=== PATIENT | male | born 1965 | race Caucasian/White ===

== ENCOUNTER 2016-11-26 01:16 | Emergency (ER) | payer SELFPAY ==
[2016-11-26 01:29] VITALS: BP 143/90
--- NOTE | 2016-11-26 02:01 | EDM.PDOC ---
ED HPI GENERAL MEDICAL PROBLEM - General Chief Complaint: Flank Pain Stated Complaint: POSS KIDNEY STONE Time Seen by Provider: 11/26/16 02:01 - History of Present Illness INITIAL COMMENTS - FREE TEXT/NARRATIVE: 51-year-old male presents emergency room with left flank pain. This started around 6:00 this evening comes and goes the pain has not been too severe. It reminds him of his last kidney stone. The patient has a history of passing one kidney stone in the past this required lithotripsy. Patient is not having any nausea no vomiting no diarrhea no constipation he denies any fevers or chills no burning or frequency with urination. Treatments ORTHOTIC PRACTITIONER: Reports: Other medication(s) Other Treatments ORTHOTIC PRACTITIONER: 2 percocet Left Flank Pain Score (Numeric/FACES): 8 - Related Data Allergies Allergy/AdvReac Type Severity Reaction Status Date / Time No Known Allergies Allergy Verified 11/26/16 01:29 Home Meds: Home Meds Tamsulosin [Flomax] 0.4 mg PO Q24H #10 cap.er 11/26/16 [Rx] Past Medical History Genitourinary History: Reports: Renal calculus - Past Surgical History GI Surgical History: Reports: Cholecystectomy Male Surgical History: Reports: None Social & Family History - Tobacco Use Smoking Status *Q: Current Every Day Smoker Years of Tobacco use: 20 Packs/Tins Daily: 0.5 Used Tobacco, but Quit: No Second Hand Smoke Exposure: No - Caffeine Use Caffeine Use: Reports: Coffee, Soda - Recreational Drug Use Recreational Drug Use: Yes Drug Use in Last 12 Months: Yes Recreational Drug Type: Reports: Marijuana/Hashish Other Recreational Drug Type: Pateint states he smokes marijuana BID Recreational Drug Use Frequency: Daily Recreational Drug Last Use: 11/25/16 ED ROS GENERAL - Review of Systems Review Of Systems: See Below Constitutional: Reports: no symptoms. Denies: fever, chills HEENT: Reports: No symptoms Respiratory: Reports: No Symptoms Cardiovascular: Reports: No symptoms GI/Abdominal: Reports: Abdominal pain, Other. Denies: Constipation, Diarrhea, Nausea, Vomiting : Reports: flank pain. Denies: discharge, dysuria, frequency, hematuria, urgency, urinary retention Neurological: Reports: No Symptoms ED EXAM, GI/ABD - Physical Exam Exam: See Below Exam Limited By: No limitations General Appearance: alert, no apparent distress Head: atraumatic, normocephalic Neck: normal inspection, supple, non-tender, full range of motion Respiratory/Chest: no respiratory distress, lungs clear, normal breath sounds Cardiovascular: regular rate, rhythm, no edema, no murmur GI/Abdominal: Normal Bowel Sounds, Soft, Other (Patient has some vague left- sided discomfort not worsened with palpation the pain is mostly left upper quadrant it radiates a little bit down into the left lower quadrant does not go into his groin) Back Exam: normal inspection, CVA tenderness (L), other (She has some left CVA discomfort not worsened with palpation or percussion). No: CVA tenderness (R) Course - Vital Signs Last Recorded V/S: Last Vital Signs Temp 37.1 C 11/26/16 01:26 Pulse 57 L 11/26/16 01:26 Resp 19 11/26/16 01:26 BP 143/90 H 11/26/16 01:26 Pulse Ox 96 11/26/16 01:26 - Orders/Labs/Meds Orders: Active Orders 24 hr Category Date Time Status Abdomen Pelvis wo Cont [CT] Stat Exams 11/26/16 02:32 Taken Lactated Ringers [Ringers, Lactated] 1,000 ml Med 11/26/16 02:15 Active IV ASDIRECTED Medication Orders Lactated Ringer's (Ringers, Lactated) 1,000 mls @ 150 mls/hr IV ASDIRECTED MATILDE Last Admin: 11/26/16 02:23 Dose: 150 mls/hr Labs: Laboratory Tests 11/26/16 11/26/16 11/26/16 Range/Units 02:25 02:25 03:42 WBC 14.68 H (4.23-9.07) K/mm3 RBC 4.69 (4.63-6.08) M/mm3 Hgb 15.8 (13.7-17.5) gm/L Hct 44.3 (40.1-51.0) % MCV 94.5 H (79.0-92.2) fl MCH 33.7 H (25.7-32.2) pg MCHC 35.7 H (32.2-35.5) g/dl RDW Std Deviation 43.5 (35.1-43.9) fL Plt Count 208 (163-337) K/mm3 MPV 10.8 (9.4-12.3) fl Neutrophils % (Manual) 83 H (40-60) % Band Neutrophils % 0 (0-10) % Lymphocytes % (Manual) 10 L (20-40) % Atypical Lymphs % 0 % Monocytes % (Manual) 7 (2-10) % Eosinophils % (Manual) 0 L (0.8-7.0) % Basophils % (Manual) 0 L (0.2-1.2) Platelet Estimate Adequate RBC Morph Comment Normal Sodium 137 (136-145) mEq/L Potassium 3.9 (3.5-5.1) mEq/L Chloride 103 (98-107) mEq/L Carbon Dioxide 23 (21-32) mEq/L Anion Gap 14.9 (5-15) BUN 21 H (7-18) mg/dL Creatinine 1.4 H (0.7-1.3) mg/dL Est Cr Clr Drug Dosing 59.04 mL/min Estimated GFR (MDRD) 53 (>60) mL/min BUN/Creatinine Ratio 15.0 (14-18) Glucose 118 H (74-106) mg/dL Calcium 9.2 (8.5-10.1) mg/dL Total Bilirubin 1.0 (0.2-1.0) mg/dL AST 36 (15-37) U/L ALT 57 (16-63) U/L Alkaline Phosphatase 67 (46-116) U/L Total Protein 7.9 (6.4-8.2) g/dl Albumin 3.9 (3.4-5.0) g/dl Globulin 4.0 gm/dL Albumin/Globulin Ratio 1.0 (1-2) Urine Color Yellow (Yellow) Urine Appearance Clear (Clear) Urine pH 5.5 (5.0-8.0) Ur Specific [place] 1.025 (1.005-1.030) Urine Protein 1+ H (Negative) Urine Glucose (UA) Negative (Negative) Urine Ketones Negative (Negative) Urine Occult Blood 2+ H (Negative) Urine Nitrite Negative (Negative) Urine Bilirubin Negative (Negative) Urine Urobilinogen 0.2 (0.2-1.0) Ur Leukocyte Esterase Negative (Negative) Urine RBC 10-20 H (0-5) /hpf Urine WBC 0-5 (0-5) /hpf Ur Epithelial Cells 0-5 (0-5) /hpf Ur Squamous Epith Cells 0-5 (0-5) /hpf Urine Bacteria Not seen (FEW) /hpf Urine Mucus Few (FEW) /hpf Meds: Medications Generic Name Dose Route Start Last Admin Trade Name Keke PRN Reason Stop Dose Admin Lactated Ringer's 1,000 mls @ 150 mls/hr 11/26/16 02:15 11/26/16 02:23 Ringers, Lactated IV 150 mls/hr ASDIRECTED MATILDE Administration Discontinued Medications Generic Name Dose Route Start Last Admin Trade Name Keke PRN Reason Stop Dose Admin Hydrocodone Bitart/Acetaminophen 1 tab 11/26/16 03:36 11/26/16 03:45 [place] 325-5 Mg PO 11/26/16 03:37 1 tab ONETIME ONE Administration Fentanyl 50 mcg 11/26/16 02:06 11/26/16 02:23 Sublimaze IVPUSH 11/26/16 02:07 50 mcg ONETIME ONE Administration Fentanyl 50 mcg 11/26/16 04:07 11/26/16 04:20 Sublimaze IVPUSH 11/26/16 04:08 50 mcg ONETIME STA Administration Ondansetron HCl 4 mg 11/26/16 02:06 11/26/16 02:23 Zofran IVPUSH 11/26/16 02:07 4 mg ONETIME ONE Administration Tamsulosin HCl 0.4 mg 11/26/16 03:37 11/26/16 03:45 Flomax PO 11/26/16 03:38 0.4 mg ONETIME ONE Administration - Re-Assessments/Exams Free Text/Narrative Re-Assessment/Exam: 11/26/16 03:56 We just obtained a urine awaiting the results of this patient has 8 mm kidney stone at the left UPJ with mild hydronephrosis labs show white count 14,680 he' s got a macrocytic process on his red cells White cell differential shows 83% segs no bands his creatinine is slightly elevated at 1.4. Departure - Departure Time of Disposition: 05:06 Disposition: Home, Self-Care 01 Clinical Impression: Kidney stone on left side - Discharge Information Prescriptions: Tamsulosin [Flomax] 0.4 mg PO Q24H #10 cap.er Referrals: PCP,Unknown [Primary Care Provider] - Forms: ED Department Discharge Additional Instructions: Return to emergency room if any questions or problems. Followup with your provider at the [facility] tomorrow for recheck. You be given a prescription for Flomax take one daily this may facilitate passage of the stone. Even given a prescription for hydrocodone take one or 2 tablets every 4-6 hours as needed for pain do not drive or returning to work within 12 hours of using this medication. You should be contacted by urology in [place]. [phone] - My Orders Last 24 Hours: My Active Orders 11/26/16 02:15 Lactated Ringers [Ringers, Lactated] 1,000 ml IV ASDIRECTED 11/26/16 02:32 Abdomen Pelvis wo Cont [CT] Stat - Assessment/Plan Last 24 Hours: My Active Orders 11/26/16 02:15 Lactated Ringers [Ringers, Lactated] 1,000 ml IV ASDIRECTED 11/26/16 02:32 Abdomen Pelvis wo Cont [CT] Stat
[2016-11-26] MEDS ORDERED: Ondansetron 4 MG/2 ML SDV IVPUSH ONE (02:06)
[2016-11-26] MEDS ORDERED: fentaNYL 100 MCG/2 ML SDV IVPUSH ONE (02:06)
[2016-11-26] MEDS ORDERED: Lactated Ringers 1,000 ML IV SCH (02:15)
[2016-11-26] MEDS ORDERED: Acetaminophen/HYDROcodone 325-5 MG Tab PO ONE (03:36)
[2016-11-26] MEDS ORDERED: Tamsulosin 0.4 MG Cap.ER PO ONE (03:37)
[2016-11-26] MEDS ORDERED: fentaNYL 100 MCG/2 ML SDV IVPUSH STA (04:07)
--- NOTE | 2016-11-26 09:04 | CT ---
CT abdomen and pelvis Technique: Multiple axial sections were obtained from above the dome of the diaphragm inferiorly through the pubic symphysis. Intravenous and oral contrast was not utilized. Study was performed as a ureteral stone protocol. Comparison: No previous exam. Findings: Inflammatory change noted around the left kidney. This finding is due to an obstructing stone located at the UPJ measuring approximately 9 mm. Nonobstructing stone seen more proximally within the renal pelvis measuring 1.1 cm. No other abnormal calcifications are seen along the course of the right or left ureters. No abnormal calcifications are seen within the right kidney. Visualized lung bases show nothing acute. Noncontrast appearance of the liver and spleen appear within normal limits. Adrenal glands show no nodule. Surgical clips seen from prior cholecystectomy. No discrete abnormality noted within the pelvis. Aorta shows no aneurysmal dilatation. No retroperitoneal adenopathy or mesenteric abnormalities are seen. No pelvic mass or adenopathy is seen. Appendix is seen which appears within normal limits. Slightly prominent small bowel seen within the left abdomen. This likely represents minimal ileus caused by the obstructing stone. Scattered degenerative change and scoliosis is noted within the spine. Impression: 1. Obstructing calculus within the left UPJ. Obstructing stone measures approximately 9 mm. 2. Nonobstructing stone more proximally within the renal pelvis measuring 1.1 cm. 3. Other incidental findings. Diagnostic code #3 I agree with preliminary report issued by [facility] (preliminary report dictated on 11/26/16, 4:32 AM Central Time)
== END 2016-11-26 06:05 | disposition home or self-care (01) ==
LOC: JD.ED 01:16
DX: N13.2 Hydronephrosis with renal and ureteral calculous obstruction (principal); F17.210 Nicotine dependence, cigarettes, uncomplicated; Z90.49 Acquired absence of other specified parts of digestive tract
CPT/HCPCS: 36415; 74176; 80053; 81001; 85025; 96361; 96374; 96375; 96376; 99284; A9270; J2405; J3010; J7120

== ENCOUNTER 2021-06-06 08:35 | Emergency (ER) | payer SELFPAY ==
[2021-06-06 08:48] VITALS: BP 159/104; PULSE 67
[2021-06-06] MEDS ORDERED: Ketorolac 15 MG/ML SDV IM ONE (09:00)
--- NOTE | 2021-06-06 09:04 | EDM.PDOC ---
ED HPI GENERAL MEDICAL PROBLEM - General Chief Complaint: Upper Extremity Injury/Pain Stated Complaint: R ELBOW PAIN Time Seen by Provider: 06/06/21 09:01 Source of Information: Reports: Patient - History of Present Illness INITIAL COMMENTS - FREE TEXT/NARRATIVE: Patient is a 55-year-old male who is left-hand dominant presenting with a chief complaint of right elbow pain. Pain is been present for 2 days. Patient reports no traumatic injuries prior to this. Patient reports pain is worse with movement. He does get relief with compressive bandages as well as warm compresses. Patient denies any fevers, recent illnesses, redness. He has also been using some aspirin with mild relief. Patient does report similar complaint several years ago for which he saw an business services specialist sales. They said this would likely be a recurrent issue and advised against surgery at that time. 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 Treatments CONSULTING SERVICES MANAGER: Reports: NSAIDS Right Elbow Pain Score (Numeric/FACES): 9 - Related Data Allergies Allergy/AdvReac Type Severity Reaction Status Date / Time No Known Allergies Allergy Verified 06/06/21 08:48 Home Meds: Home Meds Naproxen [Naprosyn] 375 mg PO BID #10 tab 06/06/21 [Rx] Pantoprazole 20 mg PO ACBREAKFAST 06/06/21 [History] atorvaSTATin [Lipitor] 10 mg PO DAILY 06/06/21 [History] Past Medical History - Past Health History Medical/Surgical History: Denies Medical/Surgical History HEENT History: Reports: Impaired Vision Cardiovascular History: Reports: High Cholesterol Genitourinary History: Reports: Renal Calculus - Past Surgical History GI Surgical History: Reports: Cholecystectomy Male Surgical History: Reports: None Social & Family History - Tobacco Use Tobacco Use Status *Q: Current Every Day Tobacco User Years of Tobacco use: 30 Packs/Tins Daily: 0.5 - Caffeine Use Caffeine Use: Reports: Coffee - Recreational Drug Use Recreational Drug Use: No Review of Systems - Review of Systems Review Of Systems: See Below Constitutional: Denies: Chills, Fever Respiratory: Denies: Shortness of Breath Cardiovascular: Denies: Chest Pain GI/Abdominal: Denies: Abdominal Pain Musculoskeletal: Reports: Arm Pain. Denies: Neck Pain, Shoulder Pain Neurological: Denies: Headache ED EXAM, GENERAL - Physical Exam Exam: See Below Free Text/Narrative:: I have reviewed the triage vital signs Const: Well nourished, well developed, appears stated age Eyes: Pupils Equal and reactive to light bilaterally, no conjunctival injection HENT: No signs of trauma or swelling, Neck supple without meningismus CV: Regular Rate Rhythm, Warm, well-perfused extremities RESP: Unlabored respiratory effort MSK: Limited range of motion of the right elbow secondary to pain. However, there is no evidence of redness, erythema, swelling, ecchymosis. No gross deformities appreciated Skin: Warm, dry. No rashes Neuro: Alert, vehicle dismantler II-XII grossly intact. Sensation and motor function of extremities grossly intact. Psych: Appropriate mood and affect. Course - Vital Signs Last Recorded V/S: Last Vital Signs Temp 36.3 C 06/06/21 08:40 Pulse 67 06/06/21 08:40 Resp 16 06/06/21 08:40 BP 159/104 H 06/06/21 08:40 Pulse Ox 93 L 06/06/21 08:40 - Orders/Labs/Meds Meds: Medications Discontinued Medications Generic Name Dose Route Start Last Admin Trade Name Keke PRN Reason Stop Dose Admin Ketorolac Tromethamine 30 mg 06/06/21 09:00 06/06/21 09:17 Ketorolac 15 Mg/Ml Sdv IM 06/06/21 09:01 30 mg ONETIME ONE Administration Departure - Departure Time of Disposition: 10:07 Disposition: Home, Self-Care 01 Clinical Impression: Right elbow pain - Discharge Information Prescriptions: Naproxen [Naprosyn] 375 mg PO BID #10 tab Instructions: Joint Pain, [id number] Referrals: Marcia Umaña [Primary Care Provider] - Forms: ED Department Discharge Additional Instructions: Please use compression to the area throughout the day. Take medications as directed. Follow-up with your orthopedic surgeon as soon as possible. You may continue to use heating pads as they seem to help. Sepsis Event Note (ED) - Focused Exam Vital Signs: Vital Signs Temp Pulse Resp BP Pulse Ox 06/06/21 08:40 36.3 C 67 16 159/104 H 93 L - Assessment/Plan Assessment:: Patient is a 55-year-old male presented to the emergency room with a complaint of right elbow pain. Evaluation in the emergency room was largely unremarkable. No evidence of septic arthritis. X-rays demonstrate significant calcifications. This is likely secondary to patient's chronic conditions. He will be referred to orthopedics for outpatient follow-up. Toradol did improve patient's symptoms. Return precautions discussed as usual. Incidental foreign body on right elbow x-ray not apparent on physical exam. Unlikely related to patient's symptoms. Patient agrees with plan of care.
--- NOTE | 2021-06-06 09:56 | CR ---
Right elbow: 4 views of the right elbow were obtained. Comparison: No prior elbow study is available. Numerous calcifications are seen around the right elbow compatible with dystrophic calcifications. Small metallic density is projected within the anterior and medial elbow compatible with foreign body. This foreign body has a length of 5 mm. No acute fracture, dislocation or other bony abnormality. Impression: 1. Numerous calcifications were on the right elbow compatible with dystrophic calcifications. 2. Small metallic foreign body projected within the anterior and medial soft tissues measuring about 5 mm. 3. No acute fracture or other abnormality is seen within the osseous structures. Diagnostic code #3
== END 2021-06-06 10:18 | disposition home or self-care (01) ==
LOC: JD.ED 08:35
DX: M25.521 Pain in right elbow (principal); E78.00 Pure hypercholesterolemia, unspecified; Z72.0 Tobacco use; Z79.899 Other long term (current) drug therapy
CPT/HCPCS: 73080; 96372; 99283; J1885

== ENCOUNTER 2021-06-06 13:16 | Emergency (ER) | payer SELFPAY ==
[2021-06-06 13:27] VITALS: BP 137/89; PULSE 80
[2021-06-06] MEDS ORDERED: Acetaminophen/oxyCODONE 325-5 MG Tab PO ONE (13:33)
--- NOTE | 2021-06-06 13:45 | EDM.PDOC ---
ED HPI GENERAL MEDICAL PROBLEM - General Chief Complaint: Upper Extremity Injury/Pain Stated Complaint: R ELBOW PAIN Time Seen by Provider: 06/06/21 13:25 Source of Information: Reports: Patient History Limitations: Reports: No Limitations - History of Present Illness INITIAL COMMENTS - FREE TEXT/NARRATIVE: Patient 55-year-old male presented to emergency room with right elbow pain. Patient seen in the emergency room by myself earlier today. He states he still having pain. He reports the throbbing has improved as well as his range of motion after receiving with Toradol. He states he is still having pain and states he did not receive any pain medication previously. Denies any new symptoms or changes in previous clinical documentation. Left Elbow Pain Score (Numeric/FACES): 10 - Related Data Allergies Allergy/AdvReac Type Severity Reaction Status Date / Time No Known Allergies Allergy Verified 06/06/21 08:48 Home Meds: Home Meds Naproxen [Naprosyn] 375 mg PO BID #10 tab 06/06/21 [Rx] Pantoprazole 20 mg PO ACBREAKFAST 06/06/21 [History] atorvaSTATin [Lipitor] 10 mg PO DAILY 06/06/21 [History] Past Medical History - Past Health History Medical/Surgical History: Denies Medical/Surgical History HEENT History: Reports: Impaired Vision Cardiovascular History: Reports: High Cholesterol Genitourinary History: Reports: Renal Calculus - Past Surgical History GI Surgical History: Reports: Cholecystectomy Male Surgical History: Reports: None Social & Family History - Tobacco Use Tobacco Use Status *Q: Current Every Day Tobacco User Years of Tobacco use: 40 Packs/Tins Daily: 0.5 - Caffeine Use Caffeine Use: Reports: None - Recreational Drug Use Recreational Drug Use: No Review of Systems - Review of Systems Review Of Systems: Comprehensive ROS is negative, except as noted in HPI. ED EXAM, GENERAL - Physical Exam Exam: See Below Free Text/Narrative:: I have reviewed the triage vital signs Const: Well nourished, well developed, appears stated age Eyes: no conjunctival injection HENT: No signs of trauma or swelling, Neck supple without meningismus CV: Regular Rate Rhythm RESP: Unlabored respiratory effort MSK: No gross deformities appreciated. Right elbow is wrapped in [place] bandage. Skin: Warm, dry. No rashes Psych: Appropriate mood and affect. Course - Vital Signs Last Recorded V/S: Last Vital Signs Temp 36.6 C 06/06/21 13:20 Pulse 80 06/06/21 13:20 Resp 18 06/06/21 13:20 BP 137/89 06/06/21 13:20 Pulse Ox 97 06/06/21 13:20 - Orders/Labs/Meds Meds: Medications Discontinued Medications Generic Name Dose Route Start Last Admin Trade Name Keke PRN Reason Stop Dose Admin Oxycodone/Acetaminophen 1 tab 06/06/21 13:33 Acetaminophen/Oxycodone 325-5 Mg Tab PO 06/06/21 13:34 ONETIME ONE Departure - Departure Time of Disposition: 13:44 Disposition: Admitted As Inpatient 66 Clinical Impression: Right elbow pain - Discharge Information Referrals: Marcia Umaña [Primary Care Provider] - Forms: ED Department Discharge Sepsis Event Note (ED) - Evaluation Sepsis Screening Result: No Definite Risk - Focused Exam Vital Signs: Vital Signs Temp Pulse Resp BP Pulse Ox 06/06/21 13:20 36.6 C 80 18 137/89 97 - Assessment/Plan Assessment:: Patient is 55-year-old male here for pain control. Apparently, he is improved from when he was seen in the emergency room earlier today. However, I did provide him with some additional pain control until he can see orthopedics. Again, there is no evidence of fracture or septic joint.
== END 2021-06-06 14:17 | disposition critical access hospital (66) ==
LOC: JD.ED 13:16
DX: M25.521 Pain in right elbow (principal); E78.00 Pure hypercholesterolemia, unspecified; Z79.899 Other long term (current) drug therapy; Z72.0 Tobacco use
CPT/HCPCS: 99283; A9270